=== PATIENT | female | born 1965 | race African-American/Black ===

== ENCOUNTER 2025-03-03 12:00 | Emergency (ER) | payer OTHER ==
[~2025-03-03] VITALS: Ht 170.2 cm; Wt 80.0 kg
[2025-03-03 12:02] VITALS: O2SAT 100
[2025-03-03] MEDS: ACETAMINOPHEN 325MG TABLET PO STA (14:51)
[2025-03-03] MEDS ORDERED: NAPR-681 PO (15:42)
[2025-03-03] MEDS ORDERED: CYCL5TAB3 PO (15:42)
[2025-03-03 15:59] VITALS: BP 162/68; PULSE 64; RESP 18; TEMP 36.7; O2SAT 98
== END 2025-03-03 17:03 | disposition home or self-care (01) ==
LOC: ER 12:18
DX: R07.89 Other chest pain (principal); M79.605 Pain in left leg; J45.909 Unspecified asthma, uncomplicated; E78.00 Pure hypercholesterolemia, unspecified; I10 Essential (primary) hypertension
CPT/HCPCS: 71045; 99283